=== PATIENT | male | born 1985 | race Caucasian/White ===

== ENCOUNTER → 2021-01-27 | Outpatient (CLI) | payer OTHER ==
[~2021-01-27] MED LIST: AMLODIPINE BESY10 MG PO; ENDOCET 7.5-321 EACH PO; HYDROCHLOROTHIA25 MG PO; LISINOPRIL40 MG PO
[2021-01-27 09:14] LABS: BUN/CREATININE RATIO 10 (0-10)
== END ==
LOC: OPSV2 07:53
PROVIDERS: Orthopaedic Surgery
DX: Z01.818 Encounter for other preprocedural examination (principal); G56.22 Lesion of ulnar nerve, left upper limb
CPT/HCPCS: 80048; 93005